=== PATIENT | female | born 1935 | race Caucasian/White ===

== ENCOUNTER 2022-12-06 02:30 | Inpatient (IN) | payer OTHER ==
[2022-12-06 03:51] VITALS: BMI 28.0
[2022-12-06] MEDS ORDERED: Ondansetron PF 4 MG/2 ML Vial IVP PRN (04:09)
[2022-12-06] MEDS ORDERED: Morphine 4 MG/ML VIAL SLOW IVP PRN (04:12)
[2022-12-06] MEDS ORDERED: Morphine 2 MG/ML VIAL SLOW IVP PRN (04:14)
[2022-12-06] MEDS ORDERED: Potassium Chloride 20 MEQ in Lactated Ringer's 1,000 ML IV SCH (04:15)
[2022-12-06] MEDS ORDERED: Lidocaine 4% Patch TD PRN (04:15)
[2022-12-06] MEDS ORDERED: Potassium Chloride 20 MEQ in Premix Bag 1 BAG IVPB SCH (04:15)
[2022-12-06 07:40] LABS: #Monocytes 0.7 10x3/uL (0.0-1.1); %Basophils 0.3 % (0.0-2.0); %Eosinophils 0.2 % (0.0-6.0); %Lymphocytes 15.4 % (18.0-47.0); %Monocytes 7.7 % (0.0-10.0); Hematocrit 34.6 % (34.9-44.5); Hemoglobin 11.4 g/dL (12.0-15.5); Mean Corpuscular HGB CONC 32.9 g/dL (32.0-36.0); Mean Corpuscular Hemoglobin 27.6 pg (27.0-33.0); Mean Corpuscular Volume 83.8 fl (81.6-98.3); Mean Platelet Volume 10.2 fl (7.4-10.4); Platelet Count 185 10x3/uL (150-450); RBC Distribution Width 15.6 % (11.5-14.5); Red Blood Cell (RBC) Count 4.13 10x6/uL (3.90-5.03); White Blood Cell (WBC) Count 9.2 10x3/uL (3.5-10.5)
[2022-12-06 07:58] LABS: Anion Gap 16 mmol/L (10-20); BUN (Urea Nitrogen) 15 mg/dL (9.8-20.1); Calc. Creatinine Clearance 48 mL/min (70-130); Calcium 8.5 mg/dL (7.8-10.44); Carbon Dioxide 26 mmol/L (23-31); Chloride 101 mmol/L (98-107); Estimated GFR 67; Glucose 106 mg/dL (83-110); Potassium 3.2 mmol/L (3.5-5.1); Sodium 140 mmol/L (136-145)
[2022-12-06 08:44] LABS: INR-International Normal Ratio 1.1; PTT 32.8 sec (22.0-33.0); Prothrombin Time 11.9 sec (9.5-12.1)
[2022-12-06] MEDS ORDERED: Famotidine/PF 20 mg/2ml Vial SLOW IVP SCH (09:00)
[2022-12-06 09:56] VITALS: TEMP 98
[2022-12-06 10:41] LABS: MDiff Complete? YES
[2022-12-06 10:53] LABS: Band 1 % (5-11); Lymphocytes 12 % (21-51); Monocytes 2 % (0-10); Neutrophil 84 % (42-75)
[2022-12-06 10:55] LABS: Ovalocytes SLIGHT = 2-5 cells (100X) (0-1/hpf)
[2022-12-06 10:56] LABS: Platelet Adequacy Comment Appears Adequate
[2022-12-06 12:16] VITALS: BP 102/55
[2022-12-06 13:03] LABS: Potassium 2.7 mmol/L (3.5-5.1)
[2022-12-06] MEDS ORDERED: Potassium Chloride 20 MEQ TAB PO SCH (13:45)
== END 2022-12-06 14:02 | disposition home or self-care (01) | DRG 395 ==
LOC: CSHTELE 03:13
PROVIDERS: ADMIT Student in an Organized Health Care Education/Training Program; ATTEND Internal Medicine
DX: K40.90 Unilateral inguinal hernia, without obstruction or gangrene, not specified as recurrent (principal); K86.9 Disease of pancreas, unspecified; N94.9 Unspecified condition associated with female genital organs and menstrual cycle; E87.6 Hypokalemia; I10 Essential (primary) hypertension; K59.00 Constipation, unspecified; M19.90 Unspecified osteoarthritis, unspecified site; E03.9 Hypothyroidism, unspecified; G89.29 Other chronic pain; E87.5 Hyperkalemia; Z88.2 Allergy status to sulfonamides; Z79.82 Long term (current) use of aspirin; Z79.899 Other long term (current) drug therapy; Z86.718 Personal history of other venous thrombosis and embolism; Z87.891 Personal history of nicotine dependence; Z98.890 Other specified postprocedural states
CPT/HCPCS: 36415; 80048; 83605; 83735; 84443; 85025; 85610; 85730; 93005; 93010; J3480; J7120; S0028